=== PATIENT | female | born 1965 | race Caucasian/White ===

== ENCOUNTER 2017-05-06 19:35 | Emergency (ER) | payer OTHER ==
[2017-05-06 19:43] VITALS: BMI 27.3
--- NOTE | 2017-05-06 21:21 | PDOC ---
History of Present Illness - General History Source: Patient Exam Limitations: No Limitations - History of Present Illness Initial Comments: 05/06/17 22:55 The patient is a 51 year old female, with a significant past medical history of HIV positive, who presents to the emergency department with, the flu, and a cough. She reports she was at [facility] yesterday and tested positive for Influenza A. She received an X-Ray which was read normal. She reports her flu like symptoms to have lasted for 15 days now. She reports taking Tylenol and Motrin at 4:30pm, without relief. She reports feeling faint when she was cooking. She denies recent fevers, chills, headache or dizziness. She denies recent nausea, vomit, diarrhea or constipation. She denies recent dysuria, frequency, urgency or hematuria. She denies recent chest pain or shortness of breath. Allergies: As per nursing notes. Past surgical history: Hysterectomy Social history: Nonsmoker. Denies EtOH use and recreational drug use. <Soledad Salazar - Last Filed: 05/07/17 03:29> <Angelique Styles - Last Filed: 05/07/17 06:18> - General Chief Complaint: Respiratory Stated Complaint: S.O.B Time Seen by Provider: 05/06/17 21:21 Past History <Soledad Salazar - Last Filed: 05/07/17 03:29> - Past Medical History Anemia: No Asthma: Yes Cancer: No Cardiac Disorders: No CVA: No COPD: No CHF: No Dementia: No Diabetes: Yes GI Disorders: No Disorders: No HTN: No Hypercholesterolemia: No Liver Disease: No Seizures: No Thyroid Disease: No - Suicide/Smoking/Psychosocial Hx Smoking History: Former smoker Have you smoked in the past 12 months: No If you are a former smoker, when did you quit?: years ago Cigars Per Day: 0 Information on smoking cessation initiated: No Hx Alcohol Use: No Drug/Substance Use Hx: No Substance Use Type: None Hx Substance Use Treatment: No <Angelique Styles - Last Filed: 05/07/17 06:18> - Past Medical History Allergies/Adverse Reactions: Allergies Allergy/AdvReac Type Severity Reaction Status Date / Time Sulfa (Sulfonamide Allergy Severe Rash Verified 05/06/17 19:40 Antibiotics) codeine [Codeine] Allergy Unknown Difficulty Verified 05/06/17 19:40 Breathing Penicillins AdvReac Mild Vomiting Verified 05/06/17 19:40 Home Medications: Ambulatory Orders Gabapentin [Neurontin] 600 mg PO BID 07/06/11 Loratadine [Claritin] 10 mg PO DAILY 07/06/11 Mometasone Furoate [Nasonex] 2 sprays DAILY 07/06/11 Tiotropium [place] [Spiriva] 1 inh PO DAILY 07/06/11 Abacavir/Dolutegravir/Lamivudi [Triumeq Tablet] 1 each PO DAILY 05/06/17 Atorvastatin Ca [Lipitor] 10 mg PO HS 05/06/17 Metformin HCl [Metformin HCl ER] 500 mg PO DAILY 05/06/17 Levofloxacin [Levaquin -] 500 mg PO DAILY #7 tablet 05/07/17 Oseltamivir Phosphate [Tamiflu] 75 mg PO BID #10 capsule 05/07/17 Prednisone [Deltasone -] 2 tab PO DAILY #10 tablet 05/07/17 Review of Systems - Review of Systems Able to Perform ROS?: Yes Comments:: 05/06/17 22:55 GENERAL/CONSTITUTIONAL: No fever or chills. No weakness. HEAD, EYES, EARS, NOSE AND THROAT: No change in vision. No ear pain or discharge. No sore throat. CARDIOVASCULAR: No chest pain or shortness of breath. RESPIRATORY: +Cough. No wheezing, or hemoptysis. GASTROINTESTINAL: No nausea, vomiting, diarrhea or constipation. GENITOURINARY: No dysuria, frequency, or change in urination. MUSCULOSKELETAL: No joint or muscle swelling or pain. No neck or back pain. SKIN: No rash NEUROLOGIC: +Near syncope. No headache, vertigo, loss of consciousness, or change in strength/sensation. ENDOCRINE: No increased thirst. No abnormal weight change. HEMATOLOGIC/LYMPHATIC: No anemia, easy bleeding, or history of blood clots. ALLERGIC/IMMUNOLOGIC: No hives or skin allergy. All Other Systems: Reviewed and Negative <Soledad Salazar - Last Filed: 05/07/17 03:29> *Physical Exam - Vital Signs Last Vital Signs Temp Pulse Resp BP Pulse Ox 102.5 F H 119 H 24 110/69 98 05/06/17 19:40 05/06/17 19:40 05/06/17 19:40 05/06/17 19:40 05/06/17 21:36 - Physical Exam Comments: 05/07/17 03:29 GENERAL: Awake, alert, and fully oriented, in no acute distress HEAD: No signs of trauma EYES: PERRLA, EOMI, sclera anicteric, conjunctiva clear NECK: Normal ROM, supple, no lymphadenopathy, JVD, or masses LUNGS: Breath sounds equal, clear to auscultation bilaterally. No wheezes, and no crackles HEART: Regular rate and rhythm, normal S1 and S2, no murmurs, rubs or gallops ABDOMEN: Soft, nontender, normoactive bowel sounds. No guarding, no rebound. No masses EXTREMITIES: Normal range of motion, no edema. No clubbing or cyanosis. No cords, erythema, or tenderness NEUROLOGICAL: Cranial nerves II through XII grossly intact. Normal speech, normal gait SKIN: Warm, Dry, normal turgor, no rashes or lesions noted. <Soledad Salazar - Last Filed: 05/07/17 03:29> - Vital Signs Last Vital Signs Temp Pulse Resp BP Pulse Ox 102.5 F H 119 H 24 110/69 98 05/06/17 19:40 05/06/17 19:40 05/06/17 19:40 05/06/17 19:40 05/06/17 19:40 <Angelique Styles - Last Filed: 05/07/17 06:18> ED Treatment Course - LABORATORY CBC & Chemistry Diagram: 05/06/17 22:10 05/06/17 22:10 - ADDITIONAL ORDERS Additional order review: 05/06/17 21:40 Influenza Types A,B Antigen (YURY) - Preliminary Nasopharyngeal Swab - Preliminary 05/06/17 22:10 RBC 4.39 MCV 83.2 MCHC 33.1 RDW 14.5 MPV 8.8 Neutrophils % 70.0 D Lymphocytes % 23.6 D Monocytes % 5.2 Eosinophils % 0.1 D Basophils % 1.1 - Medications Given in the ED: ED Medications Discontinued Medications Generic Name Dose Route Start Last Admin Trade Name Freq PRN Reason Stop Dose Admin Acetaminophen 650 mg 05/06/17 21:23 05/06/17 22:29 Tylenol - PO 05/06/17 21:24 650 mg ONCE ONE Administration Ibuprofen 600 mg 05/06/17 21:22 05/06/17 22:29 Motrin - PO 05/06/17 21:23 600 mg ONCE ONE Administration Oseltamivir Phosphate 75 mg 05/06/17 21:55 05/06/17 22:34 Tamiflu - PO 05/06/17 21:56 75 mg ONCE ONE Administration Sodium Chloride 1,000 ml 05/06/17 21:31 05/06/17 22:34 Normal Saline - IV 05/06/17 21:32 1,000 ml ONCE ONE Administration <Soledad Salazar - Last Filed: 05/07/17 03:29> - LABORATORY CBC & Chemistry Diagram: 05/06/17 22:10 05/06/17 22:10 <Angelique Styles - Last Filed: 05/07/17 06:18> Medical Decision Making - Medical Decision Making 05/06/17 21:40 Pt was here yesterday for the same; she was registered under a different name: Bucky Patiño. She was influenza A positive yesterday. She was also febrile yesterday. CXR was read as normal. Pt has HIV; she will be admitted today for IVF, Bloods, prophylactic treatment of bacterial pneumonia. 05/07/17 04:48 Patient Name: JULIET PATIÑO THIS IS A PRELIMINARY REPORT FROM [facility] DATE OF SERVICE: 2017-05-07 01:42:23 IMAGES: 391 EXAM: CT CHEST WITHOUT CONTRAST TECHNIQUE: Axial images from the lung apices to the upper abdomen with multiplanar reconstructions from the axial data set. HISTORY : Fever. Shortness of breath. HIV positive. COMPARISON: None. FINDINGS: Thyroid and upper chest are grossly negative. Left greater than right lower lobes show some minimal dependent subpleural groundglass opacity. No focal consolidation. Mild airways prominence is present bilaterally. No pleural or pericardial effusions. No enlarged mediastinal lymphadenopathy by CT criteria. No enlarged axillary lymphadenopathy by CT criteria. Evaluation for lymphadenopathy is limited on noncontrast studies. Main pulmonary artery is normal in caliber. Thoracic aorta is normal in caliber with mild atherosclerosis. Coronary arteries show no significant atherosclerosis. Visualized portions of the noncontrasted upper abdomen are unremarkable. 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 Bones are unremarkable. IMPRESSION: 1. Minimal dependent subpleural groundglass opacity in the left greater than right lower lobes could be due to a mild atelectasis or subtle early infiltrates. Mild airways prominence could be infectious or inflammatory in etiology. 05/07/17 06:16 Hospitalist will not admit patient. Pt's vitals are stable/improved/afebrile at this time. She will go home with bacterial pneumonia treatment and influenza treatment. Pt encouraged to return if she doesn't improve. <Angelique Styles - Last Filed: 05/07/17 06:18> *DC/Admit/Observation/Transfer - Attestations Scribe Attestion: 05/06/17 22:56 Documentation prepared by Soledad Salazar, acting as medical laboratory manager for Angelique Styles MD. <Soledad Salazar - Last Filed: 05/07/17 03:29> - Discharge Dispostion Admit: No <Angelique Styles - Last Filed: 05/07/17 06:18> Diagnosis at time of Disposition: HIV disease, Influenza A, Tachycardia, Fever, Near syncope, Pneumonia - Discharge Dispostion Disposition: HOME Condition at time of disposition: Improved - Prescriptions Prescriptions: Levofloxacin [Levaquin -] 500 mg PO DAILY #7 tablet Oseltamivir Phosphate [Tamiflu] 75 mg PO BID #10 capsule Prednisone [Deltasone -] 2 tab PO DAILY #10 tablet - Patient Instructions Printed Discharge Instructions: Influenza, DI for Pneumonia -- Adult
[2017-05-06] MEDS ORDERED: IBUPROFEN 600 MG TABLET (FP) PO ONE ×2 (21:22→21:47)
[2017-05-06] MEDS ORDERED: ACETAMINOPHEN 325 MG TABLET (FP) PO ONE (21:23)
[2017-05-06] MEDS ORDERED: SODIUM CHLORIDE 0.9% 500 ML INFUS.BAG IV ONE (21:31)
[2017-05-06] MEDS ORDERED: ACETAMINOPHEN 325 MG TABLET (FP) ONE (21:47)
[2017-05-06] MEDS ORDERED: OSELTAMIVIR PHOSPHATE 75 MG CAPSULE PO ONE (21:55)
[2017-05-06] MEDS ORDERED: OSELTAMIVIR PHOSPHATE 75 MG CAPSULE ONE (22:16)
[2017-05-06 22:19] LABS: BASO % 1.1 % (0-2.0); EOS % 0.1 % (0-4.5); HEMATOCRIT 36.5 % (32.4-45.2); HEMOGLOBIN 12.1 GM/dL (10.7-15.3); LYMPH % 23.6 % (8-40); MCH 27.6 pg (25.7-33.7); MCHC 33.1 g/dl (32.0-36.0); MEAN CELL VOLUME 83.2 fl (80-96); MEAN PLT VOLUME 8.8 fl (7.5-11.1); MONO % 5.2 % (3.8-10.2); PLATELET COUNT 285 K/MM3 (134-434); RBC 4.39 M/mm3 (3.60-5.2); RDW 14.5 % (11.6-15.6); WHITE BLOOD COUNT 8.3 K/mm3 (4.0-10.0)
[2017-05-06] MEDS ORDERED: ALBUTEROL SO4 2.5/IPRATROPIUM 0.5 INH SOL 3 ML VIAL.NEB. NEB ONE (22:59)
[2017-05-06 23:08] LABS: ALBUMIN 3.8 g/dl (3.4-5.0); ALK PHOS 109 U/L (45-117); ANION GAP 8 (8-16); BILIRUBIN,TOTAL 0.3 mg/dL (0.2-1.0); BLOOD UREA NITROGEN 8 mg/dL (7-18); CALCIUM 8.1 mg/dL (8.5-10.1); CHLORIDE 103 mmol/L (98-107); CO2 25 mmol/L (21-32); CREATININE 0.9 mg/dL (0.55-1.02); GLUCOSE,RANDOM 96 mg/dL (74-106); POTASSIUM 3.7 mmol/L (3.5-5.1); SGOT/AST 19 U/L (15-37); SGPT/ALT 22 U/L (12-78); SODIUM 136 mmol/L (136-145); TOT PROT 7.8 g/dl (6.4-8.2)
[2017-05-06 23:32] LABS: URINE APPEARANCE SLCLOUDY; URINE BILIRUBIN NEGATIVE (NEGATIVE); URINE BLOOD 1+ (NEGATIVE); URINE COLOR LTYELLOW; URINE GLUCOSE (UA) NEGATIVE (NEGATIVE); URINE KETONE NEGATIVE (NEGATIVE); URINE LEUK ESTERASE NEGATIVE (NEGATIVE); URINE NITRITE NEGATIVE (NEGATIVE); URINE PROTEIN NEGATIVE (NEGATIVE); URINE UROBILINOGEN NEGATIVE mg/dL (0.2-1.0)
[2017-05-06] MEDS ORDERED: LEVOFLOXACIN 500 MG IVPB 500 MG/100 ML BAG IVPB ONE ×2 (23:41→23:55)
[2017-05-06 23:45] LABS: EPI CELLS RARE /HPF (FEW); URINE BACTERIA RARE /hpf (NONE SEEN); URINE HYALINE CAST 2 /lpf; URINE MUCUS RARE
[2017-05-07] MEDS ORDERED: guaiFENesin 200 MG/10 ML 10 ML UNIT-DOSE CUPS PO ONE (05:25)
[2017-05-07] MEDS ORDERED: guaiFENesin/D-METHORPHAN HB 10 ML UNIT-DOSE CUPS ONE (05:28)
[2017-05-07 06:16] VITALS: BP 104/71; PULSE 73; TEMP 99.8
--- NOTE | 2017-05-07 13:26 | EKG ---
Test Reason : Blood Pressure : / mmHG Vent. Rate : 092 BPM Atrial Rate : 092 BPM P-R Int : 140 ms QRS Dur : 070 ms QT Int : 378 ms P-R-T Axes : 063 027 057 degrees QTc Int : 467 ms POOR DATA QUALITY, INTERPRETATION MAY BE ADVERSELY AFFECTED NORMAL SINUS RHYTHM LOW VOLTAGE QRS NO PREVIOUS ECGS AVAILABLE Confirmed by ROLF CHAPMAN MD ([id number]) on 05/07/2017 1:25:45 PM Referred By: Confirmed By:ROLF CHAPMAN MD
== END 2017-05-07 07:07 | disposition home or self-care (01) ==
LOC: JER 19:35
PROC: 3E03329 Introduction of Other Anti-infective into Peripheral Vein, Percutaneous Approach (ICD-10-PCS; principal; 2017-05-06)
PROC: 3E0F7GC Introduction of Other Therapeutic Substance into Respiratory Tract, Via Natural or Artificial Opening (ICD-10-PCS; 2017-05-06)
DX: J10.01 Influenza due to other identified influenza virus with the same other identified influenza virus pneumonia (principal); Z21 Asymptomatic human immunodeficiency virus [HIV] infection status
CPT/HCPCS: 36415; 71250-TC; 80053; 81003; 81015; 85025; 87040; 87086; 87804; 93005; 93010; 94640; 96365; 99283-25

== ENCOUNTER 2023-05-29 06:20 | Observation (INO) | payer OTHER ==
[2023-05-29 06:46] VITALS: BMI 27.3
[2023-05-29] MEDS ORDERED: ACETAMINOPHEN 1000 MG/100 ML BAG IVPB ONE (07:20)
[2023-05-29] MEDS ORDERED: ACETAMINOPHEN INJECTION 100 ML IVPB ONE (07:55)
[2023-05-29] MEDS ORDERED: MAG HYDROX/AL HYDROX/SIMETH 30 ML UNIT-DOSE CUP PO ONE (08:00)
[2023-05-29] MEDS ORDERED: SODIUM CHLORIDE 1,000 ML IV STA (08:00)
[2023-05-29] MEDS ORDERED: FAMOTIDINE 20 MG/50 ML IVPB 20 MG/50 ML MG IVPB ONE ×2 (08:00→08:32)
[2023-05-29] MEDS ORDERED: MAG HYDROX/AL HYDROX/SIMETH 30 ML UNIT-DOSE CUP ONE (08:31)
[2023-05-29 08:43] LABS: BASO % 0.7 % (0-2.0); EOS % 0.9 % (0-4.5); HEMATOCRIT 36.5 % (32.4-45.2); HEMOGLOBIN 12.6 GM/dL (10.7-15.3); LYMPH % 42.8 % (8-40); MCH 28.4 pg (25.7-33.7); MCHC 34.4 g/dl (32.0-36.0); MEAN CELL VOLUME 82.6 fl (80-96); MEAN PLT VOLUME 9.5 fl (7.5-11.1); MONO % 5.8 % (3.8-10.2); NEUT % 49.8 % (42.8-82.8); PLATELET COUNT 274 10^3/uL (134-434); RBC 4.43 M/mm3 (3.60-5.2); RDW 13.5 % (11.6-15.6); WHITE BLOOD COUNT 9.9 K/mm3 (4.0-10.0)
[2023-05-29 09:02] LABS: POTASSIUM 3.9 mmol/L (3.5-5.1)
[2023-05-29 09:04] LABS: CALCIUM 8.8 mg/dL (8.5-10.1)
[2023-05-29 09:05] LABS: ALBUMIN 3.6 g/dl (3.4-5.0); BLOOD UREA NITROGEN 13.1 mg/dL (7-18)
[2023-05-29 09:07] LABS: CREATININE 0.9 mg/dL (0.55-1.3)
[2023-05-29 09:09] LABS: BILIRUBIN,TOTAL 0.3 mg/dL (0.2-1); TOT PROT 7.4 g/dl (6.4-8.2)
[2023-05-29 09:14] LABS: URINE APPEARANCE CLEAR; URINE BILIRUBIN NEGATIVE (NEGATIVE); URINE COLOR YELLOW; URINE GLUCOSE (UA) NEGATIVE (NEGATIVE); URINE KETONE NEGATIVE (NEGATIVE); URINE LEUK ESTERASE NEGATIVE (NEGATIVE); URINE NITRITE NEGATIVE (NEGATIVE); URINE PROTEIN NEGATIVE (NEGATIVE); URINE UROBILINOGEN 0.2 mg/dL (0.2-1.0)
[2023-05-29] MEDS ORDERED: NYSTATIN 500,000 UNITS/5 ML SUSPENSION PO ONE (15:37)
[2023-05-29] MEDS: LACTATED RINGERS SOLUTION 1,000 ML IV SCH (16:18)
[2023-05-29] MEDS ORDERED: FLU VACCINE (FLULAVAL) PF 60 MCG/0.5 ML SYRINGE 2023-2024 IM ONE (20:00)
[2023-05-29] MEDS ORDERED: GABAPENTIN 300 MG CAPSULE PO ONE (21:34)
[2023-05-29] MEDS: ATORVASTATIN CA 10 MG TABLET (FP) PO SCH (21:44)
[2023-05-30] MEDS ORDERED: metFORMIN HCL 500 MG TABLET (FP) PO SCH (07:00)
[2023-05-30 07:40] LABS: POTASSIUM 3.9 mmol/L (3.5-5.1)
[2023-05-30 07:42] LABS: BLOOD UREA NITROGEN 11.6 mg/dL (7-18); CALCIUM 8.8 mg/dL (8.5-10.1); MAGNESIUM 2.2 mg/dL (1.8-2.4)
[2023-05-30 07:43] LABS: ALBUMIN 3.4 g/dl (3.4-5.0)
[2023-05-30 07:45] LABS: PHOSPHOROUS 4.4 mg/dL (2.5-4.9)
[2023-05-30 07:46] LABS: CREATININE 0.9 mg/dL (0.55-1.3)
[2023-05-30 07:47] LABS: BILIRUBIN,TOTAL 0.3 mg/dL (0.2-1); TOT PROT 6.8 g/dl (6.4-8.2)
[2023-05-30] MEDS: LACTATED RINGERS SOLUTION 1,000 ML IV SCH (07:47)
[2023-05-30 08:06] LABS: HEMATOCRIT 34.8 % (32.4-45.2); MCH 28.5 pg (25.7-33.7); MCHC 34.6 g/dl (32.0-36.0); MEAN CELL VOLUME 82.5 fl (80-96); MEAN PLT VOLUME 9.3 fl (7.5-11.1); PLATELET COUNT 265 10^3/uL (134-434); RBC 4.22 M/mm3 (3.60-5.2); RDW 13.4 % (11.6-15.6); WHITE BLOOD COUNT 8.5 K/mm3 (4.0-10.0)
[2023-05-30] MEDS: ABACAVIR/DOLUTEGRAVIR/LAMIVUDI (TRIUMEQ) TABLET PO SCH (10:10)
[2023-05-30] MEDS ORDERED: FUROSEMIDE 40 MG/4 ML INJECTABLE VIAL IVPUSH ONE ×2 (10:15→15:00)
[2023-05-30 11:41] LABS: ANISOCYTOSIS 0; MACROCYTOSIS 0; OVALOCYTE 1+
[2023-05-30 15:12] LABS: N-TERMINAL BNP 61.1 pg/ml (5-125)
[2023-05-30] MEDS: NYSTATIN 500,000 UNITS/5 ML SUSPENSION PO SCH (18:23)
[2023-05-30] MEDS: ATORVASTATIN CA 10 MG TABLET (FP) PO SCH (21:59)
[2023-05-31] MEDS: NYSTATIN 500,000 UNITS/5 ML SUSPENSION PO SCH ×4 (00:11→17:15)
[2023-05-31 03:13] VITALS: RESP 18
[2023-05-31 08:04] LABS: HEMATOCRIT 38.9 % (32.4-45.2); HEMOGLOBIN 13.1 GM/dL (10.7-15.3); MCH 27.8 pg (25.7-33.7); MCHC 33.7 g/dl (32.0-36.0); MEAN CELL VOLUME 82.7 fl (80-96); PLATELET COUNT 292 10^3/uL (134-434); RDW 13.5 % (11.6-15.6); WHITE BLOOD COUNT 9.5 K/mm3 (4.0-10.0)
[2023-05-31 08:16] LABS: POTASSIUM 3.4 mmol/L (3.5-5.1)
[2023-05-31 08:22] LABS: ALBUMIN 3.8 g/dl (3.4-5.0); BLOOD UREA NITROGEN 17.3 mg/dL (7-18); CALCIUM 9.1 mg/dL (8.5-10.1)
[2023-05-31 08:23] LABS: MAGNESIUM 2.1 mg/dL (1.8-2.4)
[2023-05-31 08:25] LABS: PHOSPHOROUS 5.4 mg/dL (2.5-4.9)
[2023-05-31 08:27] LABS: BILIRUBIN,TOTAL 0.5 mg/dL (0.2-1); TOT PROT 7.5 g/dl (6.4-8.2)
[2023-05-31] MEDS: ABACAVIR/DOLUTEGRAVIR/LAMIVUDI (TRIUMEQ) TABLET PO SCH (11:25)
[2023-05-31] MEDS ORDERED: ALBUTEROL SO4 2.5/IPRATROPIUM 0.5 INH SOL 3 ML VIAL.NEB. NEB ONE ×2 (12:25→16:15)
[2023-05-31 17:23] VITALS: BP 110/68; PULSE 71; TEMP 98.2
[2023-05-31] MEDS ORDERED: GABAPENTIN 300 MG CAPSULE PO SCH (22:00)
== END 2023-05-31 18:39 | disposition home or self-care (01) ==
LOC: JER 06:20 → JERBED 09:43 → J4W 18:52
PROVIDERS: ADMIT Internal Medicine; ATTEND Internal Medicine
PROC: 3E033NZ Introduction of Analgesics, Hypnotics, Sedatives into Peripheral Vein, Percutaneous Approach (ICD-10-PCS; principal; 2023-05-29)
PROC: 3E0F7GC Introduction of Other Therapeutic Substance into Respiratory Tract, Via Natural or Artificial Opening (ICD-10-PCS; 2023-05-29)
PROC: 3E033GC Introduction of Other Therapeutic Substance into Peripheral Vein, Percutaneous Approach (ICD-10-PCS; 2023-05-29)
PROC: 3E0337Z Introduction of Electrolytic and Water Balance Substance into Peripheral Vein, Percutaneous Approach (ICD-10-PCS; 2023-05-29)
DX: J45.909 Unspecified asthma, uncomplicated (principal); E11.9 Type 2 diabetes mellitus without complications; Z88.2 Allergy status to sulfonamides; R42 Dizziness and giddiness; F12.90 Cannabis use, unspecified, uncomplicated; Z88.5 Allergy status to narcotic agent; Z88.0 Allergy status to penicillin; B20 Human immunodeficiency virus [HIV] disease; Z87.891 Personal history of nicotine dependence
CPT/HCPCS: 0241U-QW; 36415; 70450-TC; 71045-TC-FY; 72125-TC; 80053; 81003; 82962; 83735; 83880; 84100; 84443; 84484; 85025; 87086; 93005; 93010; 93306-TC; 94640; 96361; 96365; 96375; 96376; 97116-GP; 97162-GP; 99285-25; G0378; J0131

== ENCOUNTER 2023-06-04 10:56 | Observation (INO) | payer OTHER ==
[2023-06-04 11:23] VITALS: BMI 22.9
[2023-06-04] MEDS ORDERED: ACETAMINOPHEN INJECTION 100 ML IVPB ONE (12:40)
[2023-06-04 12:46] LABS: BASO % 0.8 % (0-2.0); EOS % 0.1 % (0-4.5); HEMATOCRIT 38.5 % (32.4-45.2); HEMOGLOBIN 13.3 GM/dL (10.7-15.3); LYMPH % 48.5 % (8-40); MCH 28.6 pg (25.7-33.7); MCHC 34.6 g/dl (32.0-36.0); MEAN CELL VOLUME 82.7 fl (80-96); MONO % 9.8 % (3.8-10.2); NEUT % 40.8 % (42.8-82.8); PLATELET COUNT 231 10^3/uL (134-434); RBC 4.65 M/mm3 (3.60-5.2); RDW 13.9 % (11.6-15.6); WHITE BLOOD COUNT 5.8 K/mm3 (4.0-10.0)
[2023-06-04] MEDS: SODIUM CHLORIDE 1,000 ML IV STA (12:47)
[2023-06-04] MEDS: ACETAMINOPHEN 1000 MG/100 ML BAG IVPB ONE (12:47)
[2023-06-04 12:51] LABS: VENOUS BASE EXCESS -2.1 mmol/L (-2-2); VENOUS O2 SATURATION 43.7 % (70-80); VENOUS PCO2 37.5 mmHg (38-52); VENOUS PH 7.393 (7.310-7.410)
[2023-06-04 12:54] LABS: INR 1.11 (0.83-1.09); PROTHROMBIN TIME (PATIENT) 12.9 SEC (9.7-13.0)
[2023-06-04 12:56] LABS: ACTIVATED PTT 34.1 SECONDS (25.2-36.5)
[2023-06-04] MEDS: SODIUM CHLORIDE 2,177 ML IV ONE (13:08)
[2023-06-04 13:11] LABS: CALCIUM 8.9 mg/dL (8.5-10.1)
[2023-06-04 13:12] LABS: BLOOD UREA NITROGEN 9.7 mg/dL (7-18)
[2023-06-04 13:13] LABS: ALBUMIN 3.7 g/dl (3.4-5.0)
[2023-06-04 13:17] LABS: BILIRUBIN,TOTAL 0.2 mg/dL (0.2-1); TOT PROT 7.9 g/dl (6.4-8.2)
[2023-06-04] MEDS ORDERED: OSELTAMIVIR PHOSPHATE 75 MG CAPSULE ONE ×2 (14:08→22:08)
[2023-06-04] MEDS: OSELTAMIVIR PHOSPHATE 75 MG CAPSULE PO ONE (14:16)
[2023-06-04 14:46] LABS: EPI CELLS 21 /uL (0-25.1); HYALINE CASTS 0 /uL (0-3.1); URINE APPEARANCE CLEAR; URINE BACTERIA 278 /uL (0-1359); URINE BILIRUBIN NEGATIVE (NEGATIVE); URINE COLOR YELLOW; URINE GLUCOSE (UA) NEGATIVE (NEGATIVE); URINE KETONE NEGATIVE (NEGATIVE); URINE LEUK ESTERASE NEGATIVE (NEGATIVE); URINE NITRITE NEGATIVE (NEGATIVE); URINE PROTEIN NEGATIVE (NEGATIVE); URINE UROBILINOGEN 0.2 mg/dL (0.2-1.0); URINE WBC 10 /uL (0-25.8)
[2023-06-04 14:55] LABS: URINE RBC 29 /uL (0-23.9)
[2023-06-04] MEDS: LACTATED RINGERS SOLUTION 1,000 ML/1,000 ML INFUS.BAG IV SCH (15:36)
[2023-06-04] MEDS ORDERED: ALBUTEROL SO4 0.083% IH SOL 2.5 MG/3 ML VIAL.NEB. NEB ONE ×2 (16:02→20:05)
[2023-06-04] MEDS: ALBUTEROL SO4 0.083% IH SOL 2.5 MG/3 ML VIAL.NEB. NEB SCH (16:06)
[2023-06-04] MEDS ORDERED: PATIENT'S OWN MEDICATION (NON-FORMULARY) (Gabapentin [Neurontin] 600 MG Tablet) PO SCH (22:00)
[2023-06-04] MEDS ORDERED: ATORVASTATIN CA 10 MG TABLET (FP) ONE (22:07)
[2023-06-04] MEDS ORDERED: GABAPENTIN 300 MG CAPSULE ONE (22:08)
[2023-06-04] MEDS ORDERED: HEPARIN NA (PORCINE) 5,000 UNITS/ML 1ML VIAL ONE (22:08)
[2023-06-04] MEDS: HEPARIN NA (PORCINE) 5,000 UNITS/ML 1ML VIAL SQ SCH (22:38)
[2023-06-04] MEDS: ATORVASTATIN CA 10 MG TABLET (FP) PO SCH (22:38)
[2023-06-04] MEDS: OSELTAMIVIR PHOSPHATE 75 MG CAPSULE PO SCH (22:39)
[2023-06-04] MEDS: GABAPENTIN 300 MG CAPSULE PO SCH (22:39)
[2023-06-04] MEDS: BUDESONIDE/FORMETEROL FUMARATE 80/4.5 mcg INHALER IH SCH (22:39)
[2023-06-05] MEDS ORDERED: ACETAMINOPHEN 650 MG/20.3 ML ORAL SOLUTION (CUPS) ONE (04:18)
[2023-06-05] MEDS: ACETAMINOPHEN 1000 MG/100 ML BAG IVPB ONE (04:23)
[2023-06-05] MEDS: ACETAMINOPHEN 650 MG/20.3 ML ORAL SOLUTION (CUPS) PO ONE (04:25)
[2023-06-05] MEDS: SODIUM CHLORIDE 1,000 ML IV SCH (04:59)
[2023-06-05 08:11] LABS: BASO % 0.8 % (0-2.0); EOS % 0.1 % (0-4.5); HEMATOCRIT 33.4 % (32.4-45.2); HEMOGLOBIN 11.5 GM/dL (10.7-15.3); LYMPH % 59.5 % (8-40); MCH 28.4 pg (25.7-33.7); MCHC 34.3 g/dl (32.0-36.0); MEAN CELL VOLUME 82.9 fl (80-96); MEAN PLT VOLUME 9.9 fl (7.5-11.1); MONO % 7.8 % (3.8-10.2); NEUT % 31.8 % (42.8-82.8); PLATELET COUNT 213 10^3/uL (134-434); RBC 4.03 M/mm3 (3.60-5.2); RDW 13.9 % (11.6-15.6); WHITE BLOOD COUNT 6.1 K/mm3 (4.0-10.0)
[2023-06-05 08:23] LABS: POTASSIUM 3.7 mmol/L (3.5-5.1)
[2023-06-05 08:26] LABS: BLOOD UREA NITROGEN 8.9 mg/dL (7-18)
[2023-06-05 08:28] LABS: CALCIUM 8.3 mg/dL (8.5-10.1)
[2023-06-05 08:29] LABS: CREATININE 0.8 mg/dL (0.55-1.3)
[2023-06-05] MEDS ORDERED: ALBUTEROL SO4 0.083% IH SOL 2.5 MG/3 ML VIAL.NEB. NEB ONE ×3 (08:34→15:29)
[2023-06-05] MEDS: ABACAVIR/DOLUTEGRAVIR/LAMIVUDI (TRIUMEQ) TABLET PO SCH (09:30)
[2023-06-05] MEDS ORDERED: ATORVASTATIN CA 10 MG TABLET (FP) ONE (21:36)
[2023-06-05] MEDS ORDERED: HEPARIN NA (PORCINE) 5,000 UNITS/ML 1ML VIAL ONE (21:37)
[2023-06-05] MEDS ORDERED: OSELTAMIVIR PHOSPHATE 75 MG CAPSULE ONE (21:37)
[2023-06-05] MEDS ORDERED: GABAPENTIN 300 MG CAPSULE ONE (21:37)
[2023-06-06] MEDS: diphenhydrAMINE HCL 25 MG CAPSULE (FP) PO ONE (01:17)
[2023-06-06 06:06] VITALS: TEMP 98.4
[2023-06-06 07:30] LABS: HEMATOCRIT 34.1 % (32.4-45.2); HEMOGLOBIN 11.7 GM/dL (10.7-15.3); MCH 28.5 pg (25.7-33.7); MCHC 34.4 g/dl (32.0-36.0); MEAN CELL VOLUME 82.8 fl (80-96); MEAN PLT VOLUME 9.3 fl (7.5-11.1); PLATELET COUNT 221 10^3/uL (134-434); RBC 4.12 M/mm3 (3.60-5.2); RDW 14.1 % (11.6-15.6); WHITE BLOOD COUNT 7.1 K/mm3 (4.0-10.0)
[2023-06-06 07:31] LABS: POTASSIUM 3.9 mmol/L (3.5-5.1)
[2023-06-06 07:33] LABS: ALBUMIN 3.1 g/dl (3.4-5.0); BLOOD UREA NITROGEN 6.9 mg/dL (7-18); CALCIUM 8.1 mg/dL (8.5-10.1)
[2023-06-06 07:36] LABS: CREATININE 0.7 mg/dL (0.55-1.3)
[2023-06-06 07:38] LABS: BILIRUBIN,TOTAL 0.2 mg/dL (0.2-1); TOT PROT 6.7 g/dl (6.4-8.2)
[2023-06-06 09:18] LABS: ANISOCYTOSIS 0; HELMET CELLS 0; HOWELL-JOLLY BODIES 0; MACROCYTOSIS 0; OVALOCYTE 0; ROULEAU 0; SICKELED CELLS 0; TARGET CELLS 0; TEAR DROP CELLS 0; TOXIC GRANULATION 0
[2023-06-06 10:07] VITALS: BP 113/78; PULSE 64; RESP 16
== END 2023-06-06 11:05 | disposition home or self-care (01) ==
LOC: JER 10:56 → UNDOADMOB 14:03 → JERBED 14:03 → INTOOBSV 14:03 → JERBED 06-05 11:45
PROVIDERS: ADMIT Internal Medicine; ATTEND Internal Medicine
PROC: 3E033NZ Introduction of Analgesics, Hypnotics, Sedatives into Peripheral Vein, Percutaneous Approach (ICD-10-PCS; principal; 2023-06-05)
PROC: 3E0F7GC Introduction of Other Therapeutic Substance into Respiratory Tract, Via Natural or Artificial Opening (ICD-10-PCS; 2023-06-05)
PROC: 3E023GC Introduction of Other Therapeutic Substance into Muscle, Percutaneous Approach (ICD-10-PCS; 2023-06-05)
PROC: 3E0337Z Introduction of Electrolytic and Water Balance Substance into Peripheral Vein, Percutaneous Approach (ICD-10-PCS; 2023-06-05)
DX: J10.1 Influenza due to other identified influenza virus with other respiratory manifestations (principal); J45.901 Unspecified asthma with (acute) exacerbation; R09.02 Hypoxemia; A41.89 Other specified sepsis; B20 Human immunodeficiency virus [HIV] disease; R55 Syncope and collapse; F12.90 Cannabis use, unspecified, uncomplicated; I95.9 Hypotension, unspecified; G62.9 Polyneuropathy, unspecified; Z29.89 Encounter for other specified prophylactic measures; Z87.891 Personal history of nicotine dependence; Z88.2 Allergy status to sulfonamides; Z88.0 Allergy status to penicillin; Z88.5 Allergy status to narcotic agent
CPT/HCPCS: 0241U-QW; 36415; 71045-TC-FY; 80048; 80053; 81003; 82308; 82550; 82803; 82962; 83605; 84484; 85025; 85610; 85730; 86850; 86900; 86901; 87040; 87086; 93005; 93010; 94640; 96361; 96372; 96374; 99285-25; G0378; J0131; J1644

== ENCOUNTER 2024-04-04 09:04 | Day surgery (SDC) | payer OTHER ==
[2024-04-04 08:56] VITALS: BMI 25.1
[2024-04-04] MEDS ORDERED: LIDOCAINE 1%/EPI 1:100000 (20 ML MULTI DOSE VIAL) ONE (11:10)
[2024-04-04] MEDS ORDERED: MIDAZOLAM HCL 2 MG/2 ML SINGLE DOSE VIAL ONE (11:42)
[2024-04-04] MEDS ORDERED: PROPOFOL 20 ML ONE ×2 (11:43→14:47)
[2024-04-04] MEDS ORDERED: ACETAMINOPHEN INJECTION 100 ML ONE (11:46)
[2024-04-04] MEDS ORDERED: REMIFENTANIL (ULTIVA) HCL 1 MG VIAL ONE (11:46)
[2024-04-04] MEDS ORDERED: ROCURONIUM BROMIDE 50 MG/5 ML SYRINGE ONE (11:47)
[2024-04-04] MEDS: OXYMETAZOLINE 0.05% NASAL SOLUTION 15 ML BOTTLE NS ONE (12:05)
[2024-04-04] MEDS: LIDOCAINE 1%/EPI 1:100000 (20 ML MULTI DOSE VIAL) IJ ONE (12:05)
[2024-04-04] MEDS: ceFAZolin SODIUM 1 GM VIAL IVPB ONE (12:05)
[2024-04-04] MEDS ORDERED: POVIDONE-IODINE 5% OPHTHALMIC PREP 30 ML SOLUTION ONE (12:15)
[2024-04-04] MEDS ORDERED: NEOSTIGMINE METHYLSULFATE 0.5 MG/1 ML - 10 ML MDV ONE (14:26)
[2024-04-04] MEDS ORDERED: ONDANSETRON 4 MG/2 ML VIAL ONE (15:18)
[2024-04-04] MEDS: ONDANSETRON 4 MG/2 ML VIAL IVPUSH PRN (15:26)
[2024-04-04] MEDS: LACTATED RINGERS SOLUTION 1,000 ML IV SCH (15:28)
[2024-04-04 16:33] VITALS: TEMP 98.2
[2024-04-04] MEDS: oxyCODONE HCL 5 MG TABLET PO PRN (16:55)
[2024-04-04] MEDS ORDERED: oxyCODONE HCL 5 MG TABLET ONE (16:56)
[2024-04-04] MEDS: oxyCODONE HCL 5 MG TABLET PO ONE (17:44)
[2024-04-04] MEDS ORDERED: oxyCODONE HCL 10 MG SUSTAINED ACTING TABLET ONE (17:45)
[2024-04-04 18:05] VITALS: BP 105/61; PULSE 80; RESP 20
== END 2024-04-04 18:52 | disposition home or self-care (01) ==
LOC: JASU-SURG 09:04
PROVIDERS: ATTEND Otolaryngology
PROC: 09SM0ZZ Reposition Nasal Septum, Open Approach (ICD-10-PCS; principal; 2024-04-04 11:00)
DX: M95.0 Acquired deformity of nose (principal); J34.2 Deviated nasal septum
CPT/HCPCS: 88304-TC; 94760; J0131